=== PATIENT | male | born 1945 | race Caucasian/White ===

== ENCOUNTER 2018-04-22 12:41 | Emergency (ER) | payer OTHER, MEDICARE ==
[~2018-04-22] VITALS: Ht 175.3 cm; Wt 127.5 kg
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
[2018-04-22] MEDS ORDERED: ONDANSETRON ODT 4 MG TAB.RAPDIS PO ONE (13:45)
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
[2018-04-22 14:11] VITALS: BP 160/96
== END 2018-04-22 14:40 | disposition home or self-care (01) ==
LOC: ER 12:41
DX: M54.2 Cervicalgia (principal); M54.5 Low back pain; R11.0 Nausea; G89.11 Acute pain due to trauma; M48.061 Spinal stenosis, lumbar region without neurogenic claudication; I11.0 Hypertensive heart disease with heart failure; I50.9 Heart failure, unspecified; J44.9 Chronic obstructive pulmonary disease, unspecified; V89.2XXA Person injured in unspecified motor-vehicle accident, traffic, initial encounter; Y93.89 Activity, other specified; Y92.488 Other paved roadways as the place of occurrence of the external cause; Y99.8 Other external cause status
CPT/HCPCS: 72125; 72128; 72131; 99284; Q0162